=== PATIENT | female | born 1945 ===

== ENCOUNTER 2025-03-07 12:02 | Outpatient (REF) | payer BC, SELFPAY ==
[2025-03-07 15:04] LABS: Anion Gap 2.5 mmol/L (3-11); BUN 20 mg/dL (7-18); CO2 31.5 mmol/L (21.0-32.0); CREATININE 0.9 mg/dL (0.55-1.02); Calcium 9.5 mg/dL (8.5-10.1); Chloride 105 mmol/L (98-107); Estimated GFR 65.44 (mL/min/1.73m2); Glucose 91 mg/dL (74-106); Potassium 4.7 mmol/L (3.5-5.1); Sodium 139 mmol/L (136-145)
== END 2025-03-07 12:03 | disposition home or self-care (01) ==
LOC: NCHCN 12:02
PROVIDERS: Visit Provider Internal Medicine
DX: I10 Essential (primary) hypertension (principal)
CPT/HCPCS: 80048